=== PATIENT | male | born 1975 | race Caucasian/White ===

== ENCOUNTER 2017-01-04 13:12 | Emergency (ER) | payer OTHER ==
[2017-01-04 13:16] VITALS: PULSE 66; RESP 20; TEMP 98.2; O2SAT 99; BMI 21.9
[2017-01-04] MEDS ORDERED: Naproxen 500 MG TAB PO ONE (13:55)
[2017-01-04] MEDS: Naproxen 500 MG TAB PO STA (14:02)
[2017-01-04] MEDS: TDAP Vaccine 0.5 mL Syr IM ONE (14:08)
--- NOTE | 2017-01-04 14:18 | ED PDOC ---
HPI: General Adult Time Seen by Provider: 01/04/17 13:15 Chief Complaint (Nursing): Bite Chief Complaint (Provider): Dog Bite History Per: Patient History/Exam Limitations: no limitations Onset/Duration Of Symptoms: Hrs Have you had recent travel within the past 21 days to any of the following countries: [place], [place], [place] or [place]?: No Current Symptoms Are (Timing): Still Present Additional Complaint(s): Tj Palacio, a 41 year old male, presents to the ED for a dog bite. The patient states that earlier today he was bitten on his right forearm by a dog.The patient states that a police report was filed and the dog owners contact information was obtained. 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 Past Medical History Reviewed: Historical Data, Nursing Documentation, Vital Signs Vital Signs: Last Vital Signs Temp 98.2 F 01/04/17 13:14 Pulse 66 01/04/17 13:14 Resp 20 01/04/17 13:14 BP 149/84 01/04/17 14:37 Pulse Ox 99 01/04/17 14:32 - Medical History PMH: No Chronic Diseases - Surgical History Surgical History: No Surg Hx - Family History Family History: States: Unknown Family Hx - Home Medications Home Medications: Ambulatory Orders Medication Instructions Recorded Amoxicillin/Clavulanate [Augmentin 1 tab PO BID #20 tab 01/04/17 500 MG-125 MG] - Allergies Allergies/Adverse Reactions: Allergies Allergy/AdvReac Type Severity Reaction Status Date / Time No Known Allergies Allergy Verified 01/04/17 13:17 Review of Systems Musculoskeletal: Positive for: Other Skin: Positive for: Other (Bite salmon on right forearm.) Physical Exam - Reviewed Nursing Documentation Reviewed: Yes Vital Signs Reviewed: Yes - Physical Exam Appears: Positive for: Non-toxic, No Acute Distress Head Exam: Positive for: ATRAUMATIC, NORMOCEPHALIC Skin: Positive for: Normal Color, Warm, Dry Extremity: Positive for: Normal ROM (Full ROM actively of right elbow, right wrist and all fingers.), Other (Multiple linear puncture wounds on volar surface of right proximal forearm and larger puncture wounds on posterior right proximal forearm non pulsatile bleeding.). Negative for: Deformity, Swelling - ECG O2 Sat by Pulse Oximetry: 99 (RA) Pulse Ox Interpretation: Normal Medical Decision Making Medical Decision Makin:15 Initial Impression: 28 year old male presenting with a Dog bite to the right forearm Initial Plan: * Boostrix Vaccine 0.5 mL IM * Naproxen 500mg PO * RAD right forearm Patient instructed to follow up with PMD in 2 days for wound check. Patient is medically stable, ready for discharge and requires no further treatment in the ED at this time. Scribe Attestation Documented by Mare Jennings acting as a scribe for Eric Keith PA-C. Provider Attestation: All medical record entries made by the Scribe were at my direction and personally dictated by me. I have reviewed the chart and agree that the record accurately reflects my personal performance of the history, physical exam, medical decision making, and the department course for this patient. I have also personally directed, reviewed, and agree with the discharge instructions and disposition. Disposition - Clinical Impression Clinical Impression: Dog bite Counseled Patient/Family Regarding: Studies Performed, Diagnosis, Need For Followup - Disposition Disposition: Routine/Home Disposition Time: 02:30 Condition: STABLE Prescriptions: Amoxicillin/Clavulanate [Augmentin 500 MG-125 MG] 1 tab PO BID #20 tab Instructions: Animal Bite (ED), Acute Wound Care (ED) Print Language: NIGERIAN
[2017-01-04 14:39] VITALS: BP 149/84
--- NOTE | 2017-01-04 14:54 | RAD ---
PROCEDURE: Radiographs of the Right Forearm HISTORY: trauma COMPARISON: None available. TECHNIQUE: Frontal and lateral views obtained. FINDINGS: BONES: Current study reveals no evidence of acute displaced fracture nor dislocation. The osseous structures intact. No cortical destructive changes. JOINT SPACES: Unremarkable. OTHER FINDINGS: Subcutaneous air and swelling -edema noted within the proximal and mid dorsal soft tissues . Findings suggest overlying laceration however clinical correlation with physical exam. IMPRESSION: No evidence of acute displaced fracture nor dislocation. There is soft tissue swelling -edema and subcutaneous air involving the mid and proximal dorsal soft tissues of suggesting laceration as well. Clinic correlation with physical exam
== END 2017-01-04 14:37 | disposition home or self-care (01) ==
LOC: H.ER 13:12
DX: S51.851A Open bite of right forearm, initial encounter (principal); W54.0XXA Bitten by dog, initial encounter; Y92.89 Other specified places as the place of occurrence of the external cause